=== PATIENT | male | born 1985 | race Caucasian/White ===

== ENCOUNTER 2025-08-03 09:11 | Emergency (ER) | payer OTHER, SELFPAY ==
--- OUTSIDE RECORDS SUMMARY | 2025-08-03 09:21 | XMS_ITS | Clinical Summary ---
Author Organization [facility] Address [address] [place] [address] Care Team Providers Care Turbine Room Attendant Name Role Phone Nilesh Martínez PA-C Primary Care Provider [phone] Source Comments [facility],non-owned Affiliates and Associated Physician Practices is amultiple site organization consisting of ambulatory clinics and hospital sitesin [place], [place], [place] and [place]. This disclosure is being madepursuant to the Care Everywhere program and may not contain all information available regarding this patient. Last updated 18.[employer] [facility] Allergies No known active allergies Medications * Be aware that medications may not be up to date on this document. Alwaysverify current medications with the patient. 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 Gender Identity Not on file Sexual Orientation Not on file Last Filed Vital Signs Vital Sign Reading Time Taken Comments Blood Pressure 120/75 08/09/2024 10:21 AM SENIOR DATA ARCHITECT Pulse 78 08/09/2024 10:21 AM SENIOR DATA ARCHITECT Temperature 36.3 C (97.3 F) 08/09/2024 10:21 AM SENIOR DATA ARCHITECT Respiratory Rate 16 08/09/2024 10:2 1 AM SENIOR DATA ARCHITECT Oxygen Saturation 98% 08/09/2024 10: 21 AM SENIOR DATA ARCHITECT Inhaled Oxygen Concentration - - Weight 169.7 kg (374 lb 3.2 oz) 024 10:21 AM SENIOR DATA ARCHITECT Height 182.9 cm (6') 08/09/2024 10:21 AM SENIOR DATA ARCHITECT Body Mass Index 50.75 08/09/2024 10:21 AM SENIOR DATA ARCHITECT Plan of Treatment Health Maintenance Due Date Last Done Comments HIV SCREENING 2001 HEPATITIS C SCREENING 03/18/2004 DTAP/TDAP/TD VACCINES (1 - Tdap) 2005 HEPATITIS B VACCINE (1 of 3 - 19+ 3-dose series) 2005 HPV VACCINE (1 - 3-dose SCDM series) 2013 DEPRESSION SCREENING 09/13/2024 08/26/2022 COVID-19 VACCINE (3 - 2024-2 6 season) 2025 11/28/2020, 11/01/2020 INFLUENZA VACCINE (#1) 2025 ZOSTER VACCINE (1 of 2) 2036 HIB VACCINE Aged Out No longer eligi ble based on patient's age to complete this topic MENINGOCOCCAL (Group B) VACCINE SHARED DECISION-MAKING Aged Out No longer eligible based on patient's age to complete this topic MENINGOCOCCAL GROUPS A/C/Y/W VACCINE Aged Out No longer eligible b ased on patient's age to complete this topic PNEUMOCOCCAL VACCINE Aged Out No long er eligible based on patient's age to complete this topic Insurance [address] [address] [facility] * Guarantor: E-SCREEN,SOIL Account Type Relation to Patient Date of Phone Billing Address Company Employer [employer] [address] [facility] Teams Turbine Room Attendant Relationship Specialty Start Date End Date Nilesh Martínez PA-C [address] [place] [place] [id number] PCP - General Physician Anode Machine Operator 02/13/21
--- OUTSIDE RECORDS SUMMARY | 2025-08-03 09:21 | XMS_ITS | Clinical Summary ---
Author Organization [facility] Address [address] [place] [address] Care Team Providers Care Psychologist Private Practice Name Role Phone Unavailable Primary Care Provider Unavailabl e Social History Tobacco Use Types Packs/Day Years Used Date Smoking Tobacco: Never Assessed Sex and Gender Information Value Date Recorded Sex Assigned at Not on file Legal Sex Male 3:29 PM CDT Gender Identity Not on file Sexual Orientation Not on file Plan of Treatment Health Maintenance Due Date Last Done Comments Hepatitis C Virus (HCV) Screening 1986 TdaP Immunization 1986 Hepatitis B Immunization (1 of 3 - 19+ 3-dose series) 2005 Human Papillomavirus (HPV) Immunization (1 - 3-dose SCDM series) 2013 Influenza Immunization (#1) 2025 SARS-COV-2 Immunization ( season) 2025 Respiratory Syncytial Virus (RSV) Immunization (Adult) (1 - 1-dose 75+ series) 2061 DTaP/Tdap/Td Immunization Discontinued 1999, 02/07/1991, 10/02/1987, Additional history exists Meningococcal Immunization (ACWY) Aged Out No longer eligible based on patient's age to complete this topic Pneumococcal Immunization Combined Aged Out No longer eligible based on patient's age to complete this topic Rotavirus Immunization Aged Out No lo nger eligible based on patient's age to complete this topic
--- OUTSIDE RECORDS SUMMARY | 2025-08-03 09:21 | XMS_ITS | Clinical Summary ---
Author Organization [facility] Address [address] [place] [address] Care Team Providers Care Backshoe Person Name Role Phone No, Physician Primary Care Provider [phone] Social History Tobacco Use Types Packs/Day Years Used Date Smoking Tobacco: Never Assessed Personal Safety Answer Date Recorded Getting School Help Needed Not on file 10/22 Sex and Gender Information Value Date Recorded Sex Assigned at Not on file Legal Sex Male 4:53 PM CDT Gender Identity Not on file Sexual Orientation Not on file Plan of Treatment Not on file Care Teams Backshoe Person Relationship Specialty Start Date End Date No, Physician PCP - General 04/27/23
--- OUTSIDE RECORDS SUMMARY | 2025-08-03 09:21 | XMS_ITS | Data Portability ---
Author Organization [facility] [place], [facility] Address [address] [place] [address] Assessment Encounter Date Assessment Date Assessment LastModified by Organization Details LastModified Time 02/07/2025 02/07/2025 Adult health exam: Obese male Obesity: WIll restart phentermine if labs allow Skin tags: dERM REFERRAL Nicanthus migracans: Checking labs Nevus face: Derm referral [email or web address] Not available 02/07/2025 16:26:10 Plan of Treatment Reminders Order Date Submit Date Provider Last Modified By Organization Details Last Modified Time Details Appointments None recorded. Lab lipid panel, serum 2024 025 [email or web address] Not available 5 17:04:49 HbA1c (hemoglobin A1c), blood 2024 025 [email or web address] Not available 5 17:04:49 CBC w/ auto diff 2024 025 [email or web address] Not available 5 17:04:49 CMP, serum or plasma 2024 025 Not available 5 17:04:49 TSH, serum or plasma 2024 025 [email or web address] Not available 5 17:04:49 TSH, serum or plasma 2023 024 [email or web address] In-House Results, For Internal Use Only, Do Not Delete/merge, [id number] 4 15:52:48 CBC w/ auto diff 2023 024 [email or web address] In-House Results, For Internal Use Only, Do Not Delete/merge, 4 15:52:48 lipid panel, serum 2023 024 [email or web address] In-House Results, For Internal Use Only, Do Not Delete/merge, 4 15:52:48 CMP, serum or plasma 2023 024 [email or web address] In-House Results, For Internal Use Only, Do Not Delete/merge, 4 15:52:48 CMP, serum or plasma 2022 023 In-House Results, For Internal Use Only, Do Not Delete/merge, 3 09:28:33 lipid panel, blood 2022 023 In-House Results, For Internal Use Only, Do Not Delete/merge, 3 08:59:49 CMP, serum or plasma 2022 023 [email or web address] In-House Results, For Internal Use Only, Do Not Delete/merge, 3 08:59:49 TSH, serum or plasma 2022 023 [email or web address] In-House Results, For Internal Use Only, Do Not Delete/merge, 3 08:59:49 CBC w/ auto diff 2022 023 [email or web address] In-House Results, For Internal Use Only, Do Not Delete/merge, 3 09:17:[address] referral - Skin tags (dozens) on face as well as nevis RIGHT cheek 2024 025 [email or web address] [facility], [address] [place] [address], [id number], 5 09:45:50 sleep medicine referral - daytime somnolence, obesity, wakes gasping for air 2022 023 [email or web address] Sharmila Whitfiled MD, [address] [facility], [address], [place], [address], 3 09:55:04 Procedures None recorded. Surgeries None recorded. Imaging None recorded. Medication Orders Mounjaro 5 mg/0.5 mL subcutaneou s pen injector 2023 024 [facility] #[id number], [address], [place], [phone], 4 16:13:21 phentermine 37.5 mg tablet 2022 023 [facility] #[id number], [address], [place], [phone], 4 16:13:17 Patient TargetsNo targets recorded. Patient InstructionsNo instructions recorded. Reason for Referral Sleep Medicine Referral for Daytime somnolence daytime somnolence, obesity, wakes gasping for air daytime somnolence, obesity, wakes gasping for air Referring Physician: Nilesh Martínez, Manager [employer], Encounter Date: 02/05/2023 Manager Graphic Referral for M ultiple skin tags Skin tags (dozens) on face as well as nevis RIGHT cheek Referring Physician: Nilesh Martínez [employer], Encounter Date: 02/07/2025 Results Created Date Observation Date Name Description Value Unit Range Abnormal Flag Note LastModifiedBy Organization Detail LastModifiedTime Result Notes None recorded. Problems Name Problem SNOMED Code Status Onset Date Resolution Date Notes Provider Name and Address Organization Details Recorded Time Male hypogonadism 58210665 Active 2022 Mayelin farmer [facility] [place] 3 08:42:27 Renal function tests outside reference range 638182026 Active 2022 Mayelin farmer [facility] [place] 3 08:53:21 Hyperlipidemia 13215486 Active 2023 Mayelin farmer, [facility] [place] 4 15:36:02 Obesity 328210860 Active 2023 Myaelin farmer, [facility] [place] 4 15:44:54 Body mass index 40+ - severely obese 454370416 Active 2024 Purnima farmer, [facility] [place] 5 16:21:54 Multiple skin tags 486802202 Active 2024 Purnima farmer, [facility] 5 16:21:54 Benign neoplasm of soft tissue 06481484 Active 2024 Purnima farmer, [facility] [place] 5 16:21:54 Hyperglycemia 08317788 Active 2024 Purnima farmer, [facility] [place] 5 16:21:54 Mixed hyperlipidemia 962794821 Active 2024 Purnima farmer, [facility] [place] 5 16:25:03 Problem Notes None recorded. Medical Equipment None Reported. Allergies No known drug allergies Medications Name Sig Start Date Stop Date Status Note LastModified by Organization Details LastModified Time metformin 500 mg tablet TAKE 1 TABLET BY MOUTH TWICE DAILY 04/10 completed Not Available Not Available Not Available anastrozole 1 mg tablet TAKE 1 TABLET BY MOUTH TWICE A WEEK 02/09 completed Not Available Not Available Not Available prednisone 10 mg tablet 11/10 completed Not Available Not Available Not Available prednisone 20 mg tablet TAKE 1 TABLET TWICE A DAY BY ORAL ROUTE DIRECTED FOR 5 DAYS 01/14 completed Not Available Not Available Not Available phentermine 37.5 mg tablet Take 1 tablet every day by oral route as directed for 30 days, for Obesity. 04/10 completed Not Available Not Available Not Available tramadol 50 mg tablet TAKE 1 TABLET BY MOUTH EVERY 6 HOURS NEEDED 02/09 completed Not Available Not Available Not Available ketorolac 10 mg tablet TAKE 1 TABLET BY MOUTH EVERY 6 HOURS NEEDED FOR FOR PAIN. TAKE WITH FOOD IF GI UPSET OCCURS 11/10 completed Not Available Not Available Not Available benzonatate 100 mg capsule TAKE 1 CAPSULE BY MOUTH THREE TIMES DAILY NEEDED FOR COUGH 02/09 completed Not Available Not Available Not Available testosteron e cypionate 200 mg/mL intramuscul ar oil INJECT 1/2 (ONE-HALF ) ML INTRAMUSC ULARLY ONCE A WEEK active Not Available Not Available No t Available methylpredn isolone 4 mg tablets in a dose pack FOLLOW PACKAGE DIRECTION S 11/10 completed Not Available Not Available Not Available albuterol sulfate HFA 90 mcg/actuati on aerosol inhaler INHALE 2 PUFFS BY MOUTH FOUR TIMES DAILY 02/09 completed Not Available Not Available Not Available BD Luer-Winnie Syringe 3 mL 21 gauge x 1 1/2 USE DIRECTED active Not Available Not Available No t Available Clomid 50 mg tablet TAKE 1/2 TABLET BY MOUTH DAILY 02/09 completed Not Available Not Available Not Available Ozempic 0.25 mg or 0.5 mg (2 mg/1.5 mL) subcutaneou s pen injector Inject 0.5 mg every week by subcutane ous route as directed for 28 days. 02/09 completed Not Available Not Available Not Available Mounjaro 5 mg/0.5 mL subcutaneou s pen injector 04/10 completed Not Available Not Available Not Available Vitals Date Recorded Body height Oxygen saturation Respiratory rate Body mass index (BMI) Body weight Heart rate Systolic And Diastolic Provider Name and Address Organization Details Last Updated DateTime 5 182.88 cm 99 % 16 /min 50.5 kg/m2 480043. 36 g 64 /min 128/98 mm[Hg] Purnima Barajas [facility] 5 09:17:42 Date Recorded Body height Body mass index (BMI) Body weight Heart rate Respiratory rate Systolic And Diastolic Provider Name and Address Organization Details Last Updated DateTime 3 182.88 cm 45.3 kg/m2 473624. 85 g 70 /min 16 /min 142/80 mm[Hg] Mayelin Trimble [facility] 3 08:51:46 Date Recorded Body height Body mass index (BMI) Body weight Respiratory rate Heart rate Oxygen saturation Systolic And Diastolic Provider Name and Address Organization Details Last Updated DateTime 5 182.88 cm 49.8 kg/m2 862522. 4 g 16 /min 90 /min 96 % 126/98 mm[Hg] Purnima Barajas [facility] [place] 5 15:01:37 Date Recorded Body height Body mass index (BMI) Body weight Heart rate Respiratory rate Oxygen saturation Systolic And Diastolic Provider Name and Address Organization Details Last Updated DateTime 4 182.88 cm 50 kg/m2 901840. 58 g 116 /min 16 /min 97 % 120/78 mm[Hg] Mayelin Trimble [facility] [place] 4 15:34:40 Date Recorded Body height Provider Name an d Address Organization Details Last Updated DateTime 03/02/2023 182.88 cm Mayelin Trimble [facility] [place] 03/02/2023 08:52:52 Social History Question Answer Notes LastModified by Organizat ion Details LastModified Time Tobacco Smoking Status Never Smoker Glenny farmer [facility] [place] 11/12/2022 08:38:46 Do You Have An Advance Directive? No Information n ot available 08/21/2020 Are You Blind Or Do You Have Difficulty Seeing? No Information n ot available 01/14/2022 What Is Your Level Of Caffeine Consumption? Moderate Information not available 08/21/2020 How Much Tobacco Do You Chew? None Information not available 08/21/2020 In The 14 Days Before Symptom Onset, Have You Had Close Contact With A Laboratory-confirm ed COVID-19 While That Case Was Ill? No Information n ot available 08/21/2020 In The 14 Days Before Symptom Onset, Have You Had Close Contact With A Person Who Is Under Investigation For COVID-19 While That Person Was Ill? No Information not available 08/21/2020 Have You Been To An Area Known To Be High Risk For COVID-19? No Information not available 08/21/2020 Are You Deaf Or Do You Have Serious Difficulty Hearing? No Information not available 01/14/2022 What Type Of Diet Are You Following? REGULAR Information n ot available 01/14/2022 Marital Status Single Informatio n not available 08/21/2020 How Many Children Do You Have? 0 Information not available 08/21/2020 What Is Your Relationship Status? Information not available 01/14/2022 Are You Passively Exposed To Smoke? No Information no t available 08/21/2020 How Much Tobacco Do You Smoke? No Information not available 08/21/2020 How Many Years Have You Smoked Tobacco? 0 Information not available 08/21/2020 Do You Have Difficulty Walking Or Climbing Stairs? No Information not available 01/14/2022 Sex: Unknown Functional Status Question Answer Note LastModified by Organizat ion Details LastModified Time Do you use any illicit or recreational drugs? No [email or web address] Information not available 11/12/2022 What is your level of alcohol consumption? None [email or web address] Information not available 11/12/2022 Do you or have you ever used smokeless tobacco? Never used smokeless tobacco Information not available 08/21/2020 Do you have difficulty doing errands alone? No Information not available 01/14/2022 Do you have difficulty dressing, bathing, grooming, or toileting? No Information not available 01/14/2022 Do you or have you ever used e-cigarettes or vape? Never used electronic cigarettes Information not available 08/21/2020 What is your exercise level? Occasional Information not available 08/21/2020 Mental Status Question Answer Note LastModified by Organizat ion Details LastModified Time Do you feel stressed (tense, restless, nervous, or anxious, or unable to sleep at night)? [id number] Information not available 01/14/2022 Do you have difficulty concentrating, remembering or making decisions? No Information no t available 01/14/2022 Family History Relationship Description Onset Age of this Age Resolved Age Notes LastModified by Organization Details LastModified Time Maternal Grandfather Family history of malignant neoplasm Not available 2019 14:05:10 Maternal Grandfather Diabetes mellitus Not available 2019 14:05:35 Maternal Grandfather Family history of stroke Not available 2019 14:06:36 Paternal Grandfather Diabetes mellitus Not available 2019 14:05:35 Paternal Grandfather Hypertensive disorder Not available 2019 14:06:15 Paternal Grandfather Heart disease Not available 2019 14:06:49 Paternal Grandfather Alcoholism Not available 1 10/22/2019 14:06:57 Mother Hypertensive disorder Not available 2019 14:06:15 Father Hypertensive disorder Not available 2019 14:06:15 Sister Depressive disorder Not available 2019 14:07:11 Medical History Condition Response Coronary Artery Disease N Gout N Hyper / Hypo Thyroid N Ear or Hearing Problems N Head Injury / Concussion N Heart Problems / Murmur N COPD N Hyper / Hypo Tension Y Skin Problems Y Bladder or Urine / Kidney or Stones N Anemia N Stomach issues / Acid Reflex N Constipation N Diabetes N Vision or Eye Problems Y Arthritis N Anxiety / Depression Disorder N Seizures / Epilepsy N Chicken Pox / Shingles Vac Y Cancer N Stroke N Asthma N Allergies N ADHD / ASD N High Cholesterol N Liver Disease N Pulmonary Embolism N Headaches N Immunizations Vaccine Type Date Status Note Provider Nam e and Address Organization Details Recorded Time Hib, unspecified formulation 8 completed Glenny farmer [facility] [place] 11/10/2022 08:50:34 MMR 1 austin farmer [facility] [place] 11/10/2022 08:50:34 MMR 7 austin farmer [facility] [place] 11/10/2022 08:50:34 DTP 7 austin farmer [facility] [place] 11/10/2022 08:50:34 DTP 8 austin farmer [facility] [place] 11/10/2022 08:50:34 DTP 1 completed Glenny Red null, [facility] [place] 11/10/2022 08:50:34 DTP 6 completed Glenny Macn null, [facility] [place] 11/10/2022 08:50:34 DTP 6 completed Glenny Red null, [facility] [place] 11/10/2022 08:50:34 OPV, trivalent 8 completed Glenny Macn null, [facility] [place] 11/10/2022 08:50:34 OPV, trivalent 1 completed Glenny Red null, [facility] [place] 11/10/2022 08:50:34 OPV, trivalent 6 completed Glenny Red null, [facility] [place] 11/10/2022 08:50:34 OPV, trivalent 6 completed Glenny Red null, [facility] [place] 11/10/2022 08:50:34 Td (adult), 2 Lf tetanus toxoid, preservative free, adsorbed 0 completed Glenny farmer, [facility] [place] 11/10/2022 08:50:34 COVID-19, mRNA, LNP-S, PF, 100 mcg/0.5mL dose or 50 mcg/0.25mL dose 1 completed Glenny farmer, [facility] [place] 11/10/2022 08:50:34 COVID-19, mRNA, LNP-S, PF, 100 mcg/0.5mL dose or 50 mcg/0.25mL dose 1 completed Glenny farmer, [facility] [place] 11/10/2022 08:50:34 Past Encounters Encounter ID Performer Location Encounter Start Date Encounter Closed Date Diagnosis/Indication Diagnosis SNOMED-CT Code Diagnosis ICD10 Code Diagnosis IMO Codes Diagnosis Note [id number] José Hadley MD [facility] [address] [place] [address] [place] [address] 08/21/2020 13:57:21 08/22/2020 15:15:03 Low back pain 646227084 M54.5 most likely musculoske letal Obesity 173401575 E66.9 50.6 BMI pt has lost 30 pounds and is trying for more Elevated blood-pressure reading without diagnosis of hypertension 011481517 R03.0 adv ised continued weight loss, getting labs Adult heal th examination 268895267 Z00.00 Diabetes m ellitus screening 885417332 Z13.1 Z83.3 Skin tag 313842549 L91.8 Pt wants to wait for skin tag removal. Will accomodate when the time comes [id number] José Hadley MD [facility] [address] [place] [address] 01/14/2022 08:32:08 01/14/2022 09:02:19 Adult health examination 007405775 Z00.00 Obesity 215743835 E66.9 50.6 BMI pt has lost 30 pounds and is trying for more Hyperlipid emia screening 879514487 Z13.220 Diabetes m ellitus screening 109098781 Z13.1 Z83.3 [id number] José Hadley MD [facility] [address] [place] [address] 04/27/2022 08:25:44 04/27/2022 10:00:48 Tuberculosis screening 653848503 Z11.1 [id number] José Hadley MD [facility] [address] [place] [address] [place] [address] 11/10/2022 08:33:32 11/10/2022 15:18:47 Health examination of sub-group 054792285 Z00.8 Ok for a two year cert [id number] José Hadley MD [facility] [address] [place] [address] 11/12/2022 08:33:19 11/13/2022 12:41:18 Body mass index 30+ - obesity 925919563 Z68.41 Pt wants to try to lose weight on phentermin e, then we will try the injectable s (Ozempic is covered by his insurance) . If ALONZO no better will set up sleep study Obstructiv e sleep apnea syndrome 81414805 G47.33 Pt wants to try to lose weight on phentermin e, then we will try the injectable s (Ozempic is covered by his insurance) . If ALONZO no better will set up sleep study [id number] José Hadley MD [facility] [address] [place] [address] [place] [address] 02/05/2023 08:44:08 02/05/2023 21:51:36 Adult health examination 516033200 Z00.01 Thyroid di sorder screening 267781430 Z13.29 checking labs for [employer] Hyperlipid emia screening 689784442 Z13.220 checking labs for [employer] Obesity 369059061 E66.9 50.6 BMI pt has lost 30 pounds and is trying for more, Trying phentermin e for one more month. If no progress, will start GLP-1 agonist (he has drug name) Daytime somnolence 78408 52365 00 R40.0 STOP BANG 03/20 [id number] José Hadley MD [facility] [address] [place] [address] [place] [address] 03/02/2023 08:38:19 03/02/2023 11:27:41 Renal function tests outside reference range 624098993 R94.4 checking labs [id number] José Hadley MD [facility] [address] [place] [address] [place] [address] 02/10/2024 15:28:06 02/14/2024 15:05:48 Adult health examination 031177637 Z00.01 Hyperlipidemia 92549339 E78.5 checking labs Obesity 532471867 E66.09 Ashlee appears to be better accepted by his insurance company. Current BMI: 50 [id number] José Hadley MD [facility] [address] [place] [address] [place] [address] 11/15/2024 09:01:19 11/21/2024 13:41:41 Health examination of sub-group 453226785 Z00.8 Pt has sleep apnea so only one year cert [id number] José Hadley MD [facility] [address] [address] 02/07/2025 14:53:55 02/07/2025 15:24:35 Multiple skin tags 592340858 L91.8 [id number] Derm referral Benign vaughn plasm of soft tissue 20560703 D22.9 [id number] Derm referral Hyperglycemia 99629930 R 73.9 56002 Checking labs Body mass index 40+ - severely obese 459660899 E66.01 4052465 injectable s not working for him. If labs allow, will restart phentermin e at lower dose Adult heal th examination 423709168 Z00.01 5214663 Adult health exam: Obese male. Checking labs Mixed hyperlipidemia 267 617476 E78.2 80462 Checking labs Health Concerns Section Related Observation LastModified by Organization Detai ls LastModified Time None Recorded Concern Status LastModified by Organization Details LastModified Time None Recorded Advance Directives Directive N: Payers Insurance Date Sequence Insurance Name Policy Number Policy Carlton Covered Member ID Carlton Member ID Guarantor Name 02/04/2025 1 R [id number] Jose David Soto [id number] Jose David Soto Notes Date Note Type Note Provider Name and Address Organization Details Recorded Time 02/05/2023 text/html 37 YO presents for physical for insurance coverage. Pt is obese at BMI: 44.5 Nilesh Wei7 [facility] [address], [place], [address], [facility] [place] 02/05/2023 09:17:06 02/10/2024 text/html 38 YO presents for physical for work. He is obese and would like to discuss weight loss options. He has tried phentermine but his GFR dropped so it was DC'd. 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 Purnima farmer, [facility] [place] 11/15/2024 09:29:02 02/07/2025 text/html 39 YO presents for annual exam and labs. He has insurance forms to fill out. He endorses skin lesions on inside folds of both elbows (brown velvety patches) and skin tags on face. Many skin tags. Family history of DM2. Pt states difficult sleeping due to over-thinking. Bowel and bladder normal. Family history of CVD on father's side. He was taking injectable GLP-1 agonist to no avail. He states doesn't relieve his hunger cravings. Nilesh Martínez [facility],[address], [place], [address], [facility] [place] 02/07/2025 17:04:51
[2025-08-03 09:32] VITALS: BP 128/76; PULSE 83; RESP 18; TEMP 36.8; O2SAT 98
--- NOTE | 2025-08-03 09:50 | ED_ITS ---
HPI - Ear Problem General Chief complaint: Ear Stated complaint: R Ear Time Seen by Provider: 08/03/25 09:32 Source: patient and RN notes reviewed Mode of arrival: ambulatory Limitations: no limitations History of Present Illness HPI Narrative: 40 year old male patient presents today complaining of pain to the right ear x3 weeks. Pain increases with chewing or touching the ear. Reports muffled hearing this morning. No OTC treatment prior to arrival. Currently rates his pain 1/10, which increases significantly with pressure. Patient was evaluated by telemedicine today and prescribe some mupirocin. He has not yet started. Related Data Home Medications ?Medication ?Instructions ?Recorded ?Confirmed ?Last Taken ?Type fluconazole 150 mg tablet mg 08/03/25 Unknown History mupirocin 2 % topical ointment 1 applic topical DAILY 08/03/25 08/03/25 Unknown History ([place]) syringe with needle 3 mL 21 gauge 08/03/25 08/03/25 U nknown History x 1 1/2 (BD Luer-Winnie Syringe) testosterone cypionate 200 mg/mL mg 08/03/25 Unknown History intramuscular oil Allergies Allergy/AdvReac Type Severity Reaction Status Date / Time No Known Allergies Allergy Verified 08/03/25 09:25 [facility] Comments At time of signature, I have reviewed and agree with nursing past medical, surgical, social and family history unless otherwise noted. Please see nursing chart for further information. There is no relevant family history pertinent to the presenting complaint Exam Narrative: GENERAL: Well-appearing, well-nourished, and in no acute distress. HEAD: Normocephalic, atraumatic. EYES: EOMI. No redness or drainage. Conjunctivae normal. ENT: Mucous membranes pink and moist. Nares congested with rhinorrhea. Frequent sniffing. TMs normal bilaterally. Left ear normal. Right TM normal. Right tragus is erythematous and moderately edematous. Tender to palpation. No obvious breaks in the skin noted. No mastoid tenderness. No tenderness to the TM joint. NECK: Normal AROM. Supple. No lymphadenopathy. CHEST: No respiratory distress. EXTREMITIES: Normal range of motion. No edema. SKIN: Warm, dry, no rash. Capillary refill normal. Normal skin turgor. NEURO: No focal deficits. Alert and oriented x3. Gait steady. PSYCH: Normal affect. No signs of depression or anxiety. Course Course Level of Care: Express Care Visit Vital Signs Vital signs: Vital Signs Temperature 98.2 F 08/03/25 09:32 Pulse Rate 83 08/03/25 09:32 Respiratory Rate 18 08/03/25 09:32 Blood Pressure 128/76 08/03/25 09:32 Pulse Oximetry 98 08/03/25 09:32 Oxygen Delivery Room Air 08/03/25 09:32 Temperature 98.2 F 08/03/25 09:32 Pulse Rate 83 08/03/25 09:32 Respiratory Rate 18 08/03/25 09:32 Blood Pressure 128/76 08/03/25 09:32 Pulse Oximetry 98 08/03/25 09:32 Oxygen Delivery Room Air 08/03/25 09:32 Reviewed Medical Decision Making MDM Narrative Medical decision making narrative: 40 year old male patient presents today complaining of pain to the right ear x3 weeks. Pain increases with chewing or touching the ear. Reports muffled hearing this morning. No OTC treatment prior to arrival. Currently rates his pain 1/10, which increases significantly with pressure. Upon exam, patient has some rhinorrhea and mild nasal congestion. His right tragus is moderately swollen and mildly erythematous. Instructed patient to start the mupirocin to the tragus as instructed by telemedicine this morning. Will also start a short course of Augmentin for the cellulitis. It is also recommended that patient started NSAID to help with the discomfort. Patient presents plan. Vital signs stable. Anticipatory guidance and ED precautions given. Differential Diagnosis Differential Diagnosis: Otitis media, otitis externa, ruptured TM, serous otitis, TM joint dysfunction, mastoiditis, cellulitis Vital Signs Vital Signs: Vital Signs Temperature 98.2 F 08/03/25 09:32 Pulse Rate 83 08/03/25 09:32 Respiratory Rate 18 08/03/25 09:32 Blood Pressure 128/76 08/03/25 09:32 Pulse Oximetry 98 08/03/25 09:32 Oxygen Delivery Room Air 08/03/25 09:32 Temperature 98.2 F 08/03/25 09:32 Pulse Rate 83 08/03/25 09:32 Respiratory Rate 18 08/03/25 09:32 Blood Pressure 128/76 08/03/25 09:32 Pulse Oximetry 98 08/03/25 09:32 Oxygen Delivery Room Air 08/03/25 09:32 Critical Care Time Critical Care Time Critical Care Time: No Discharge Plan Discharge Clinical Impression: Cellulitis of tragus of right ear Patient Disposition: Home Condition: Stable Instructions: Antibiotic Form, Cellulitis (ED) Additional Instructions: You have developed an infection in the tissue of the external ear. Please use your prescribed antibiotic ointment. Take the oral Augmentin as directed. You may also try an anti-inflammatory such as Aleve or ibuprofen to help with the pain and swelling. Consider also, cool compresses to help with inflammation. Follow-up with your PCP next week if symptoms are not improving. Go to the ER if symptoms worsen to include fever greater than 100.3, or significant swelling of your face. Patient Language: Citizen Of [place] Prescriptions: New amoxicillin-pot clavulanate 875-125 mg tablet 1 tablet PO Q12H 5 Days Qty: 10 0RF No Action fluconazole 150 mg tablet testosterone cypionate 200 mg/mL oil (DME) syringe with needle [BD Luer-Winnie Syringe] 3 mL 21 gauge x 1 1/2 syringe MISCELLANEOUS mupirocin [Centany] 2 % ointment 1 applic topical DAILY Follow-up/Referrals: UNKNOWN,DOCTOR [Primary Care Provider] Time of Disposition: 09:49
== END 2025-08-03 09:52 | disposition home or self-care (01) ==
PROVIDERS: Emergency Provider Nurse Practitioner
DX: H60.11 Cellulitis of right external ear (principal)
CPT/HCPCS: 99203; G0463